=== PATIENT | female | born 1940 | race Caucasian/White ===

== ENCOUNTER → 2022-02-14 | Outpatient (CLI) | payer OTHER | LOC: PLD 12:12 → LAB SHORT 12:12 | DX: D22.71 Melanocytic nevi of right lower limb, including hip (principal) | CPT/HCPCS: 88305 ==

== ENCOUNTER 2023-01-27 22:31 | Observation (INO) | payer OTHER ==
[~2023-01-27] VITALS: Ht 167.6 cm; Wt 51.6 kg
[~2023-01-27 22:31] MED LIST: ALEN70 PO; ATEN50 PO; ATOR40TA PO; CLOP75 PO; Isosorbide Mono30 MG PO; LEVSOD75 PO; LISI20 PO; LOW DOSE ASPIRI81 M1 PO; METO25ER PO; NITR.4SL SL; PANT20 PO; POTA10T PO; Prinivil10 MG PO; UBID10 PO
[2023-01-27 23:07] LABS: BASOPHILS ABSOLUTE AUTO 0.04 K/mm3 (0.00-0.23); BASOPHILS PERCENT AUTO 1 % (0-2); EOSINOPHILS PERCENT AUTO 2 % (0-6); Hematocrit 44.6 % (33.0-51.0); Hemoglobin 15.2 g/dL (11.5-16.0); IMMATURE GRAN ABSOLUTE AUTO 0.02 K/mm3 (0.00-0.10); IMMATURE GRAN PERCENT AUTO 0 % (0-1); LYMPHOCYTES ABSOLUTE AUTO 2.25 K/mm3 (0.84-5.20); LYMPHOCYTES PERCENT AUTO 34 % (21-46); MONOCYTES ABSOLUTE AUTO 0.64 K/mm3 (0.16-1.47); MONOCYTES PERCENT AUTO 10 % (4-13); Mean Corpuscular HGB 31.9 pg (26.0-34.0); Mean Corpuscular HGB Conc 34.1 g/dL (31.5-36.5); Mean Corpuscular Volume 94 fL (80-100); Mean Platelet Volume 11.3 fL (9.1-12.4); NEUTROPHILS ABSOLUTE AUTO 3.56 K/mm3 (1.96-9.15); NEUTROPHILS PERCENT AUTO 54 % (41-73); Platelet Count 178 K/mm3 (150-400); RDW Coefficient Variation 13.2 % (11.7-14.2); Red Blood Cell Count 4.77 M/mm3 (3.80-5.20); White Blood Cell Count 6.61 K/mm3 (4.00-11.30)
[2023-01-27 23:26] LABS: Albumin, Blood 4.2 g/dL (3.4-5.0); Albumin/Globulin Ratio 1.3 (0.8-1.8); Bilirubin, Total 0.5 mg/dL (0.1-1.0); Bun/Creatinine Ratio 20.6 (12.0-20.0); Calcium, Blood 9.6 mg/dL (8.5-10.1); Creatinine, Blood 0.68 mg/dL (0.40-1.00); Globulin, Blood 3.3 g/dL (2.2-4.0); Potassium, Blood 3.6 mmol/L (3.5-5.5); Total Protein, Blood 7.5 g/dL (6.4-8.2)
[2023-01-28 04:05] VITALS: BP 217/104
--- NOTE | 2023-01-28 04:53 | NUR ---
ADMIT NOTE 82 YR OLD FEMALE ADMITTED TO FLOOR FROM THE ED WITH DX OF HYPERTENSIVE CRISIS. ALERT AND OREINTED X 4. COOPERATIVE. BP 217/104. AT BEDSIDE TO ASSESS PT. HYDRALAZINE 10 MG IV ADMINISTERED. PT REPORTED HAD CHEST PAIN IN THE ED. MD ASSESSED PT. THEN PT UP TO BATHROOM WITH OBSERVATION. VOIDED AND THEN BACK TO BED. HOB ELEVATED. ORIENTED TO USE OF CALL LIGHT AND BED CONTROL. CALL LIGHT IN REACH. WILL CONTINUE TO MONITOR
[2023-01-28 05:01] VITALS: BP 136/62
--- NOTE | 2023-01-28 05:08 | NUR ---
VOICED SOME ANXIETY. BREATHING TECHNIQUES DISCUSSED, REASSURANCE GIVEN. BP MED EFFECTIVE: 136/62. WILL CONT TO MONITOR
[2023-01-28 07:30] VITALS: BP 149/73
[2023-01-28 08:49] LABS: BASOPHILS ABSOLUTE AUTO 0.04 K/mm3 (0.00-0.23); BASOPHILS PERCENT AUTO 0 % (0-2); EOSINOPHILS ABSOLUTE AUTO 0.01 K/mm3 (0.00-0.68); EOSINOPHILS PERCENT AUTO 0 % (0-6); Hematocrit 46.3 % (33.0-51.0); Hemoglobin 16.1 g/dL (11.5-16.0); IMMATURE GRAN ABSOLUTE AUTO 0.04 K/mm3 (0.00-0.10); IMMATURE GRAN PERCENT AUTO 0 % (0-1); LYMPHOCYTES ABSOLUTE AUTO 1.19 K/mm3 (0.84-5.20); LYMPHOCYTES PERCENT AUTO 11 % (21-46); MONOCYTES ABSOLUTE AUTO 0.53 K/mm3 (0.16-1.47); MONOCYTES PERCENT AUTO 5 % (4-13); Mean Corpuscular HGB 32.2 pg (26.0-34.0); Mean Corpuscular HGB Conc 34.8 g/dL (31.5-36.5); Mean Corpuscular Volume 93 fL (80-100); Mean Platelet Volume 11.3 fL (9.1-12.4); NEUTROPHILS PERCENT AUTO 83 % (41-73); Platelet Count 207 K/mm3 (150-400); RDW Coefficient Variation 13.3 % (11.7-14.2); RDW Standard Deviation 45.4 fL (35.1-46.3); White Blood Cell Count 10.71 K/mm3 (4.00-11.30)
[2023-01-28 09:19] LABS: Albumin, Blood 4.3 g/dL (3.4-5.0); Albumin/Globulin Ratio 1.3 (0.8-1.8); Bilirubin, Total 0.8 mg/dL (0.1-1.0); Bun/Creatinine Ratio 20.4 (12.0-20.0); Calcium, Blood 9.1 mg/dL (8.5-10.1); Creatinine, Blood 0.59 mg/dL (0.40-1.00); Globulin, Blood 3.4 g/dL (2.2-4.0); Potassium, Blood 3.5 mmol/L (3.5-5.5); Total Protein, Blood 7.7 g/dL (6.4-8.2)
[2023-01-28 15:45] VITALS: BP 144/75
--- NOTE | 2023-01-28 17:11 | NUR ---
SHIFT SUMMARY PT AOX4, INDEPENDENT TO THE BATHROOM. SLEPT MOST OF THE SHIFT, STATED SHE DID NOT GET ANY SLEEP LAST NIGHT. NO COMPLAINTS OF CP OR PRESSURE THIS SHIFT. PT CALLS WELL AND MAKES HER NEEDS KNOWN. POTENTIAL DISCHARGE TOMORROW. CALL LIGHT WITHIN REACH, BED IN THE LOWEST POSITION. WILL REPORT TO ONCOMING NURSE.
[2023-01-28 19:42] VITALS: BP 133/71
[2023-01-29 04:07] VITALS: BP 166/86
--- NOTE | 2023-01-29 04:53 | NUR ---
SHIFT SUMMARY PATIENT IS ALERT AND ORIENTED. PATIENT HAS HAD NO ACUTE EVENTS THIS SHIFT. VITAL SIGNS REVIEWED. PATIENT HAS HAD NO COMPLAINTS OF PAIN, NAUSEA, SOB OR VOMITTING THIS SHIFT. PATIENT HAS SLEPT WELL THIS SHIFT. BED IN LOCKED AND LOWEST POSITION. CALL LIGHT IN PLACE. WILL MONITOR UNTIL SHIFT CHANGE.
[2023-01-29 04:54] LABS: BASOPHILS ABSOLUTE AUTO 0.03 K/mm3 (0.00-0.23); BASOPHILS PERCENT AUTO 1 % (0-2); EOSINOPHILS ABSOLUTE AUTO 0.05 K/mm3 (0.00-0.68); EOSINOPHILS PERCENT AUTO 1 % (0-6); Hematocrit 40.9 % (33.0-51.0); IMMATURE GRAN ABSOLUTE AUTO 0.01 K/mm3 (0.00-0.10); IMMATURE GRAN PERCENT AUTO 0 % (0-1); LYMPHOCYTES ABSOLUTE AUTO 1.75 K/mm3 (0.84-5.20); LYMPHOCYTES PERCENT AUTO 30 % (21-46); MONOCYTES ABSOLUTE AUTO 0.66 K/mm3 (0.16-1.47); MONOCYTES PERCENT AUTO 11 % (4-13); Mean Corpuscular HGB Conc 34.2 g/dL (31.5-36.5); Mean Corpuscular Volume 93 fL (80-100); Mean Platelet Volume 11.1 fL (9.1-12.4); NEUTROPHILS ABSOLUTE AUTO 3.42 K/mm3 (1.96-9.15); NEUTROPHILS PERCENT AUTO 58 % (41-73); Platelet Count 160 K/mm3 (150-400); RDW Coefficient Variation 13.5 % (11.7-14.2); RDW Standard Deviation 46.7 fL (35.1-46.3); Red Blood Cell Count 4.38 M/mm3 (3.80-5.20); White Blood Cell Count 5.92 K/mm3 (4.00-11.30)
[2023-01-29 05:30] LABS: Albumin, Blood 3.3 g/dL (3.4-5.0); Albumin/Globulin Ratio 1.2 (0.8-1.8); Bilirubin, Total 0.6 mg/dL (0.1-1.0); Bun/Creatinine Ratio 25.8 (12.0-20.0); Calcium, Blood 8.4 mg/dL (8.5-10.1); Creatinine, Blood 0.66 mg/dL (0.40-1.00); Globulin, Blood 2.8 g/dL (2.2-4.0); Potassium, Blood 4.1 mmol/L (3.5-5.5); Total Protein, Blood 6.1 g/dL (6.4-8.2)
[2023-01-29 07:17] VITALS: BP 167/78
[2023-01-29] MEDS ORDERED: LISI20 PO (13:07)
--- NOTE | 2023-01-29 15:27 | NUR ---
DISCHARGE SUMMARY ALERT, ORIENTED, PLEASANT, COOPERATIVE. INDEPENDENT IN ROOM. ROOM AIR, SR-ST ON TELE. TOLERATING CARDIAC DIET AND LIQUIDS. VOIDING WELL. BP STABLE AND SLIGHTLY ELEVATED. PATIENT DENIES CHEST PAIN, SOB, DIZZINESS, PALPITATIONS, OR WEAKNESS. BP MEDS ADJUSTED BY DR LENZ, DISCHARGE ORDER GIVEN. DISCHARGE EDUCATION GIVEN ON MED DOSE CHANGES AND RX'S SENT TO [facility]. ALSO EDUCATION ON SIGNS/SYMPTOMS TO CALL OR RETURN. AND FOLLOW UP APPT WITH TETO ROTH AT [facility]. IV DC'D WNL. PATIENT LEFT UNIT AT 1520 VIA WHEELCHAIR WITH DAUGHTER FOR HOME.
== END 2023-01-29 15:11 | disposition home or self-care (01) ==
LOC: ER 22:31 → MEDS 22:32
PROVIDERS: Emergency Medicine; Internal Medicine; ADMIT Internal Medicine
DX: I16.1 Hypertensive emergency (principal); I10 Essential (primary) hypertension; R79.89 Other specified abnormal findings of blood chemistry; I25.10 Atherosclerotic heart disease of native coronary artery without angina pectoris; E03.9 Hypothyroidism, unspecified; Z88.2 Allergy status to sulfonamides
CPT/HCPCS: 36415; 71045; 80053; 84484; 85025; 93005; 93010; 96372; 96374; 96375; 99285-25; A9270; C9113; G0378; J1650

== ENCOUNTER → 2023-03-18 | Outpatient (CLI) | payer OTHER | LOC: LAB 10:10 → LAB SHORT 10:10 | DX: N39.0 Urinary tract infection, site not specified (principal) | CPT/HCPCS: 87077; 87086; 87186 ==

== ENCOUNTER → 2023-04-18 | Outpatient (CLI) | payer OTHER ==
[2023-04-18 13:53] LABS: Source, Urine Clean Catch
[2023-04-18 15:00] LABS: Blood, Urine Neg (Neg); Color, Urine Amber (P-Yellow); Glucose Qualitative, Urine Neg (Neg); Ketones, Urine Neg (Neg); Leukocyte Esterase, Urine 2+ (Neg); Nitrite, Urine Neg (Neg); Protein, Urine 2+ (Neg); Urobilinogen, Urine 1+ (Normal)
[2023-04-18 15:13] LABS: Appearance, Urine Hazy (Clear); Bilirubin, Urine 1+ (Neg)
[2023-04-18 15:14] LABS: Amorphous Light (0-Heavy); Bacteria Mod /hpf; Mucus Light (0-Heavy); Red Blood Cells, Urine 0-2 /hpf (0-2); Squamous Epithelial Cells Rare /hpf (Few)
== END ==
LOC: LAB SHORT 13:43 → LAB 13:43
PROVIDERS: Obstetrics & Gynecology
DX: N30.90 Cystitis, unspecified without hematuria (principal)
CPT/HCPCS: 81001; 87086

== ENCOUNTER → 2023-05-20 | Outpatient (CLI) | payer OTHER ==
[2023-05-20 13:52] LABS: Source, Urine Clean Catch
[2023-05-20 15:49] LABS: Appearance, Urine Clear (Clear); Bilirubin, Urine Neg (Neg); Blood, Urine Neg (Neg); Color, Urine Yellow (P-Yellow); Glucose Qualitative, Urine Neg (Neg); Ketones, Urine Neg (Neg); Leukocyte Esterase, Urine Neg (Neg); Nitrite, Urine Neg (Neg); Protein, Urine Neg (Neg); Urobilinogen, Urine NORM (Normal)
== END | disposition home or self-care (01) ==
LOC: LAB 13:51 → LAB SHORT 13:51
PROVIDERS: Obstetrics & Gynecology
DX: N32.89 Other specified disorders of bladder (principal)
CPT/HCPCS: 81003

== ENCOUNTER → 2023-07-09 | Outpatient (CLI) | payer OTHER ==
[2023-07-13 07:49] LABS: CORTISOL,U FREE - RATIO TO CRT 17.47 ug/g CRT; CORTISOL,URINE FREE - PER 24H 7.4 ug/d (<=45.0); CORTISOL,URN FREE - PER VOLUME 2.97 ug/L; CREATININE,URINE - PER 24H 425 mg/d (400-1300); CREATININE,URINE - PER VOLUME 17 mg/dL; HOURS COLLECTED 24 hr; TOTAL VOLUME 2500 mL
== END | disposition home or self-care (01) ==
LOC: LAB SHORT 05:00 → LAB 05:00
PROVIDERS: Physician Assistant
DX: R19.09 Other intra-abdominal and pelvic swelling, mass and lump (principal)
CPT/HCPCS: 81050; 82530

== ENCOUNTER → 2023-07-30 | Outpatient (CLI) | payer OTHER ==
[2023-08-02 08:11] LABS: CREATININE,URINE - PER 24H 646 mg/d (400-1300); CREATININE,URINE - PER VOLUME 19 mg/dL; HOURS COLLECTED 24 hr; METANEPHRINE,UR - RATIO TO CRT 116 ug/g CRT (0-300); METANEPHRINE,URINE - PER 24H 75 ug/d (36-229); METANEPHRINE,URN - PER VOLUME 22 ug/L; NORMETANEPHRINE,U - PER VOLUME 113 ug/L; NORMETANEPHRINE,URN - PER 24H 384 ug/d (95-650); NORMETANEPHRINE,URN/CRT RATIO 595 ug/g CRT (0-400); TOTAL VOLUME 3400 mL
[2023-08-02 10:16] LABS: CREATININE,URINE - PER 24H 646 mg/d (400-1300); CREATININE,URINE - PER VOLUME 19 mg/dL; DOPAMINE,URINE - PER 24H 150 ug/d (71-485); DOPAMINE,URINE - PER VOLUME 44 ug/L; DOPAMINE,URINE - RATIO TO CRT 232 ug/g CRT (0-250); EPINEPHRINE,URINE - PER 24H 3 ug/d (1-14); EPINEPHRINE,URINE - PER VOLUME 1 ug/L; EPINEPHRINE,URN - RATIO TO CRT 5 ug/g CRT (0-20); HOURS COLLECTED 24 hr; NOREPINEPHRINE,UR - PER VOLUME 19 ug/L; NOREPINEPHRINE,URINE - PER 24H 65 ug/d (14-120); NOREPINEPHRINE,URN/CRT RATIO 100 ug/g CRT (0-45); TOTAL VOLUME 3400 mL
== END | disposition home or self-care (01) ==
LOC: LAB SHORT 11:30 → LAB 11:30
PROVIDERS: Internal Medicine Endocrinology, Diabetes & Metabolism
DX: E27.8 Other specified disorders of adrenal gland (principal)
CPT/HCPCS: 81050; 82384; 83835

== ENCOUNTER 2023-10-02 11:00 | Inpatient (IN) | payer OTHER ==
[~2023-10-02] VITALS: Ht 162.6 cm; Wt 56.8 kg
[2023-10-02 12:02] LABS: BASOPHILS ABSOLUTE AUTO 0.05 K/mm3 (0.00-0.23); BASOPHILS PERCENT AUTO 1 % (0-2); EOSINOPHILS ABSOLUTE AUTO 0.01 K/mm3 (0.00-0.68); EOSINOPHILS PERCENT AUTO 0 % (0-6); Hematocrit 43.7 % (33.0-51.0); Hemoglobin 15.3 g/dL (11.5-16.0); IMMATURE GRAN ABSOLUTE AUTO 0.03 K/mm3 (0.00-0.10); IMMATURE GRAN PERCENT AUTO 0 % (0-1); LYMPHOCYTES PERCENT AUTO 15 % (21-46); MONOCYTES ABSOLUTE AUTO 1.02 K/mm3 (0.16-1.47); MONOCYTES PERCENT AUTO 10 % (4-13); Mean Corpuscular HGB 32.8 pg (26.0-34.0); Mean Corpuscular Volume 94 fL (80-100); Mean Platelet Volume 10.6 fL (9.1-12.4); NEUTROPHILS ABSOLUTE AUTO 7.56 K/mm3 (1.96-9.15); NEUTROPHILS PERCENT AUTO 74 % (41-73); Platelet Count 189 K/mm3 (150-400); RDW Coefficient Variation 13.4 % (11.7-14.2); RDW Standard Deviation 45.5 fL (35.1-46.3); Red Blood Cell Count 4.66 M/mm3 (3.80-5.20); White Blood Cell Count 10.17 K/mm3 (4.00-11.30)
[2023-10-02 12:23] LABS: Albumin, Blood 3.9 g/dL (3.4-5.0); Albumin/Globulin Ratio 1.3 (0.8-1.8); Bilirubin, Total 0.6 mg/dL (0.1-1.0); Bun/Creatinine Ratio 25.8 (12.0-20.0); Calcium, Blood 8.9 mg/dL (8.5-10.1); Creatinine, Blood 0.5 mg/dL (0.40-1.00); Globulin, Blood 3.1 g/dL (2.2-4.0); Potassium, Blood 4.2 mmol/L (3.5-5.5)
[2023-10-02] MEDS ORDERED: HYDCHL25 PO (14:01)
[2023-10-02] MEDS ORDERED: Acetaminophen 325 MG TABLET PO PRN (15:55)
[2023-10-02] MEDS ORDERED: Ondansetron 4 MG TAB PO PRN (15:55)
[2023-10-02] MEDS ORDERED: Propofol 10mg/ml 20 ml Vial (Procedural) IV ONE (16:49)
[2023-10-02] MEDS ORDERED: Phenylephrine HCl 100 MCG/ML-NS 10MLSYR (1MG/10ML) IV ONE (16:49)
[2023-10-02] MEDS ORDERED: Metoprolol Succinate 50 MG TABCR PO SCH (17:00)
[2023-10-02] MEDS ORDERED: Alendronate Sodium 70 MG Tablet PO SCH (17:10)
[2023-10-02] MEDS ORDERED: Nitroglycerin 0.4 MG SUBL SL PRN (17:15)
[2023-10-02 17:25] VITALS: BP 206/138
[2023-10-02] MEDS ORDERED: LISI20 PO (17:50)
[2023-10-02] MEDS ORDERED: HydroCHLOROthiazide 25 mg Tab PO SCH (18:00)
[2023-10-02] MEDS ORDERED: Lisinopril 20 MG Tab PO SCH (18:00)
[2023-10-02] MEDS ORDERED: HydrALAZINE HCl 20 MG / ML 1ML Vial IV PRN (18:05)
[2023-10-02 18:28] VITALS: BP 197/124
[2023-10-02 18:42] VITALS: BP 147/94
[2023-10-02 19:06] LABS: Anti-Xa UFH, PHA Monitoring <0.10 IU/mL; International Normalized Ratio 1.09; Prothrombin Time Results 11.6 Sec (9.7-11.5)
[2023-10-02] MEDS ORDERED: Heparin Sodium,Porcine/0.5 NS 500 ML IV SCH (19:35)
[2023-10-02 19:53] VITALS: BP 139/84
[2023-10-02] MEDS ORDERED: Magnesium Oxide 400 MG Tab PO SCH (21:55)
[2023-10-02] MEDS ORDERED: Melatonin 5 MG Tablet PO PRN (21:55)
[2023-10-02] MEDS ORDERED: BIOFREEZE TOP PRN (22:00)
[2023-10-02 23:35] VITALS: BP 100/60
[2023-10-02 23:55] VITALS: BP 149/93
[2023-10-03] VITALS (16 sets, daily range): BP systolic 88–140; BP diastolic 58–98
--- NOTE | 2023-10-03 00:35 | NUR ---
10/02/23 2340 Pt found sitting on floor in bathroom and slow to respond. Assist pt to supine position on bathroom floor. Physical assesment and vital signs obtained. Pt voice weak but able to speak. Pt reports unsure about what happened, but reports she is "pretty sure I did not hit my head." Heparin gtt stopped until MD notified. Pt had been up to BR mutiple times with SBA to and from. Pt educated at start of shift regarding fall precautions, uses call light appropriately. Helped to BR via staff member and notified to call when finished as per prior times this shift. Upon checking, staff member found pt sitting on bathroom floor near sink, resting head on sink. Placed lift sheet under pt and used multiple staff to lift pt to bed. [address] Jose notified, orders to continue Heparin gtt. 2350 Assessment repeated, neuro assessment Q1hr. Frequent vital signs.
[2023-10-03 02:17] LABS: BASOPHILS ABSOLUTE AUTO 0.04 K/mm3 (0.00-0.23); BASOPHILS PERCENT AUTO 0 % (0-2); EOSINOPHILS ABSOLUTE AUTO 0.01 K/mm3 (0.00-0.68); EOSINOPHILS PERCENT AUTO 0 % (0-6); Hematocrit 41.8 % (33.0-51.0); Hemoglobin 14.4 g/dL (11.5-16.0); IMMATURE GRAN ABSOLUTE AUTO 0.03 K/mm3 (0.00-0.10); IMMATURE GRAN PERCENT AUTO 0 % (0-1); LYMPHOCYTES ABSOLUTE AUTO 1.17 K/mm3 (0.84-5.20); LYMPHOCYTES PERCENT AUTO 12 % (21-46); MONOCYTES ABSOLUTE AUTO 0.86 K/mm3 (0.16-1.47); MONOCYTES PERCENT AUTO 9 % (4-13); Mean Corpuscular HGB 31.9 pg (26.0-34.0); Mean Corpuscular HGB Conc 34.4 g/dL (31.5-36.5); Mean Corpuscular Volume 93 fL (80-100); Mean Platelet Volume 10.6 fL (9.1-12.4); NEUTROPHILS ABSOLUTE AUTO 7.62 K/mm3 (1.96-9.15); NEUTROPHILS PERCENT AUTO 78 % (41-73); Platelet Count 180 K/mm3 (150-400); RDW Coefficient Variation 13.2 % (11.7-14.2); RDW Standard Deviation 45.1 fL (35.1-46.3); Red Blood Cell Count 4.51 M/mm3 (3.80-5.20); White Blood Cell Count 9.73 K/mm3 (4.00-11.30)
[2023-10-03] MEDS ORDERED: Dose Adjust by Pharmacy XX STA ×3 (02:22→14:33)
[2023-10-03 02:33] LABS: Albumin, Blood 3.4 g/dL (3.4-5.0); Albumin/Globulin Ratio 1.2 (0.8-1.8); Bilirubin, Total 0.7 mg/dL (0.1-1.0); Bun/Creatinine Ratio 30.9 (12.0-20.0); Calcium, Blood 7.8 mg/dL (8.5-10.1); Creatinine, Blood 0.42 mg/dL (0.40-1.00); Globulin, Blood 2.8 g/dL (2.2-4.0); Magnesium, Blood 2.1 mg/dL (1.6-2.4); Phosphorus, Blood 2.7 mg/dL (2.5-4.9); Potassium, Blood 3.3 mmol/L (3.5-5.5); Total Protein, Blood 6.2 g/dL (6.4-8.2)
[2023-10-03] MEDS ORDERED: Levothyroxine Sodium 0.075 MG Tab PO SCH (06:00)
[2023-10-03] MEDS ORDERED: Pantoprazole Sodium 20 MG Tab PO SCH (06:00)
[2023-10-03] MEDS ORDERED: Metoprolol Succinate 25 MG TABCR PO SCH (09:00)
[2023-10-03] MEDS ORDERED: Clopidogrel Bisulfate 75 MG Tab PO SCH (09:00)
[2023-10-03] MEDS ORDERED: Atorvastatin 40 MG Tab PO SCH (09:00)
[2023-10-03] MEDS ORDERED: Potassium Chloride 10 Meq Tablet SA PO SCH (09:00)
[2023-10-03] MEDS ORDERED: Aspirin 81 MG TabEC PO SCH (09:00)
[2023-10-03] MEDS ORDERED: Isosorbide Mononitrate 60 MG TABCR PO SCH (09:00)
[2023-10-03] MEDS ORDERED: Enoxaparin 40 MG/0.4 ML SYR SC SCH (09:00)
[2023-10-03] MEDS ORDERED: Metoprolol Succinate 50 MG TABCR PO SCH (09:00)
[2023-10-03] MEDS ORDERED: Misc. Capsule PO SCH (09:00)
--- NOTE | 2023-10-03 09:25 | NUR ---
AM SHIFT PT ALERT, ORIENTED X4; CALM AND COOPERATIVE [facility]. PT RESTING IN BED, UP WITH SBA. PT DENIES PAIN, CHEST PAIN/PRESSURE, SOB, NAUSEA, AND NUMB/TINGLING. PT REPORTS BASELINE "LIGHTHEADEDNESS" ALL THE TIME. DISCUSSED BP MEDICATIONS AND SOFT BP WITH DR HESTER, NEW ORDER FOR METOPROLOL AND HOLD MEDICATIONS THIS AM. SPO2 >90% ON RA, BREATHING EVEN AND UNLABORED. ABD SOFT, NONTENDER, +BT T/O. TELE AFIB 110'S, BP STABLE. NO EDEMA NOTED. OTHER VSS. NO OTHER ACUTE CHANGES NOTED. WILL CONTINUE TO MONITOR.
--- NOTE | 2023-10-03 16:11 | NUR ---
SHIFT SUMMARY NO ACUTE CHANGES NOTED. BP TRENDING UP. OTHER VSS. WILL CONTINUE TO MONITOR.
[2023-10-03] MEDS ORDERED: Potassium Chloride 10 Meq Tablet SA PO ONE (20:30)
[2023-10-04] VITALS (8 sets, daily range): BP systolic 94–168; BP diastolic 55–116
[2023-10-04 05:14] LABS: Hematocrit 41.9 % (33.0-51.0); Hemoglobin 14.9 g/dL (11.5-16.0); Mean Platelet Volume 10.6 fL (9.1-12.4); Platelet Count 181 K/mm3 (150-400)
[2023-10-04] MEDS ORDERED: Clarify Drug Order XX ONE (05:45)
--- NOTE | 2023-10-04 05:47 | NUR ---
1915 Assumed care of pt, bedside report completed. Shift planof care reviewed with pt, all questions answered. Pt with uneventful shift, was able to sleep well per her report. Remains in Atrial Fib with rate between 80-110, BP remains stable. Taking PO well, and up to BR/BSC with SBA due to fall yesterday. Pt calling appropriately and neuro status has remained stable. Please see full assessment for additional details. No further complaints or concerns at this time, will continue to monitor.
[2023-10-04] MEDS ORDERED: dilTIAZem HCL 30 MG TAB PO SCH ×2 (09:00→14:00)
[2023-10-04 09:09] LABS: BASOPHILS ABSOLUTE AUTO 0.03 K/mm3 (0.00-0.23); BASOPHILS PERCENT AUTO 0 % (0-2); EOSINOPHILS ABSOLUTE AUTO 0.05 K/mm3 (0.00-0.68); EOSINOPHILS PERCENT AUTO 1 % (0-6); Hematocrit 41.5 % (33.0-51.0); Hemoglobin 14.7 g/dL (11.5-16.0); IMMATURE GRAN ABSOLUTE AUTO 0.03 K/mm3 (0.00-0.10); IMMATURE GRAN PERCENT AUTO 0 % (0-1); LYMPHOCYTES ABSOLUTE AUTO 2.16 K/mm3 (0.84-5.20); LYMPHOCYTES PERCENT AUTO 25 % (21-46); MONOCYTES ABSOLUTE AUTO 0.83 K/mm3 (0.16-1.47); MONOCYTES PERCENT AUTO 10 % (4-13); Mean Corpuscular HGB 32.5 pg (26.0-34.0); Mean Corpuscular HGB Conc 35.4 g/dL (31.5-36.5); Mean Corpuscular Volume 92 fL (80-100); Mean Platelet Volume 11.3 fL (9.1-12.4); NEUTROPHILS ABSOLUTE AUTO 5.53 K/mm3 (1.96-9.15); NEUTROPHILS PERCENT AUTO 64 % (41-73); Platelet Count 186 K/mm3 (150-400); RDW Coefficient Variation 13.2 % (11.7-14.2); RDW Standard Deviation 44.9 fL (35.1-46.3); Red Blood Cell Count 4.52 M/mm3 (3.80-5.20); White Blood Cell Count 8.63 K/mm3 (4.00-11.30)
[2023-10-04 09:23] LABS: Albumin, Blood 3.4 g/dL (3.4-5.0); Albumin/Globulin Ratio 1.2 (0.8-1.8); Bun/Creatinine Ratio 22.3 (12.0-20.0); Calcium, Blood 7.8 mg/dL (8.5-10.1); Creatinine, Blood 0.49 mg/dL (0.40-1.00); Globulin, Blood 2.8 g/dL (2.2-4.0); Total Protein, Blood 6.2 g/dL (6.4-8.2)
--- NOTE | 2023-10-04 10:41 | NUR ---
Pt. is awake in bed and welcomes my visit. Pt. is pleasant and displays evidence of awarenss and engagement. Facilitate a life review and in the process establish rapport. Considered matters of wilber anf belief as well as the implications of her condition and future procedures. Listen with empathy and a calming presence. Pt. verbalized the expectation that she would eb discharged tomorrow. Pt. displays evidence of being encouraged with some of her anxieties lessened as a result of our visit. Prayed with Pt. Pt. verbalized gratitude for the spiritual care visit.
--- NOTE | 2023-10-04 17:45 | NUR ---
SHIFT SUMMARY PT BP DROPPED AFTER AM MEDCIATIONS, DR HERNÁNDEZ NOTIFIED. DR MCCLENDON TO ROOM THIS AFTERNOON. PLANS TO CONITNUE MEDICATIONS AT THIS TIME. NEED FOR ELA AND CARDIOVERSION, PLANS FOR ON SATURDAY; NPO SATURDAY NIGHT. BP TRENDING BACK UP. TELE AFIB 110-130'S. NO OTHER ACUTE CHANGES NOTED. OTHER VSS. WILL CONTINUE TO MONITOR.
[2023-10-05 03:57] VITALS: BP 110/68
[2023-10-05 04:15] LABS: BASOPHILS ABSOLUTE AUTO 0.05 K/mm3 (0.00-0.23); BASOPHILS PERCENT AUTO 1 % (0-2); EOSINOPHILS PERCENT AUTO 1 % (0-6); Hematocrit 38.9 % (33.0-51.0); Hemoglobin 13.7 g/dL (11.5-16.0); IMMATURE GRAN ABSOLUTE AUTO 0.03 K/mm3 (0.00-0.10); IMMATURE GRAN PERCENT AUTO 0 % (0-1); LYMPHOCYTES ABSOLUTE AUTO 2.06 K/mm3 (0.84-5.20); LYMPHOCYTES PERCENT AUTO 23 % (21-46); MONOCYTES ABSOLUTE AUTO 0.65 K/mm3 (0.16-1.47); MONOCYTES PERCENT AUTO 7 % (4-13); Mean Corpuscular HGB 32.4 pg (26.0-34.0); Mean Corpuscular HGB Conc 35.2 g/dL (31.5-36.5); Mean Corpuscular Volume 92 fL (80-100); Mean Platelet Volume 10.5 fL (9.1-12.4); NEUTROPHILS ABSOLUTE AUTO 6.09 K/mm3 (1.96-9.15); NEUTROPHILS PERCENT AUTO 68 % (41-73); Platelet Count 181 K/mm3 (150-400); RDW Coefficient Variation 13.2 % (11.7-14.2); RDW Standard Deviation 45.1 fL (35.1-46.3); Red Blood Cell Count 4.23 M/mm3 (3.80-5.20); White Blood Cell Count 8.98 K/mm3 (4.00-11.30)
[2023-10-05 04:37] LABS: Albumin, Blood 3.1 g/dL (3.4-5.0); Albumin/Globulin Ratio 1.1 (0.8-1.8); Bilirubin, Total 0.5 mg/dL (0.1-1.0); Bun/Creatinine Ratio 23.1 (12.0-20.0); Calcium, Blood 8.1 mg/dL (8.5-10.1); Creatinine, Blood 0.48 mg/dL (0.40-1.00); Globulin, Blood 2.8 g/dL (2.2-4.0); Potassium, Blood 3.9 mmol/L (3.5-5.5); Total Protein, Blood 5.9 g/dL (6.4-8.2)
[2023-10-05] MEDS ORDERED: Clarify Drug Order XX ONE (04:40)
--- NOTE | 2023-10-05 05:16 | NUR ---
1915 Assumed care of pt, bedside report completed. Shift plan of care reviewed with pt and all questions answered. Pt slept well this shift, BP stable and HR well controlled. Pt does endorse disappointment regarding need to reschedule adrenal gland surgery in order to address current Atrial Fibrillation. Pt expresses understanding that without addressing this, she would not be cleared for surgery. Theraupetic listening and encouraged pt to use coping tools she has at her disposal. Pow[employer] Worker Tnt from her local [place] in to visit. Pt more calm and centered the rest of the shift. Heparin gtt continues at 15u/kg/hr, next check 6/30 AM. Please see full assessment for additional details. No further complaints or concerns at this time, will continue to monitor.
[2023-10-05 07:47] VITALS: BP 127/84
--- NOTE | 2023-10-05 07:55 | NUR ---
am note this rn assumed care at 0700. vital signs stable. tele afib 100s-110s. spo2 >97% on room air. patient is alert and oriented x4. neuro is intact. perrla. patient is able to make needs known and uses call light appropriately. patient is independent, but has staff standby due to history of syncopal episode on 10/02 noc. patient denies chest pain/pressure, pain, or shortness of breath. see shift assessment for further detials. geparin drip at 15u/kg/hr with dose weight at 50kg. see emar.
[2023-10-05] MEDS ORDERED: HyDROXyzine HCl 10 MG Tab PO PRN (11:30)
[2023-10-05 12:31] VITALS: BP 114/91
[2023-10-05 15:05] VITALS: BP 111/78
--- NOTE | 2023-10-05 18:33 | NUR ---
shift summary patient neuro remains up to date. vital signs stable. tele afib 100-120s. heart rate increased with activity. heparin drip remains running at same rate, 15u/kg/hr. plan for galo/cardiocversion on saturday (10/07/23). npo saturday night at midnight. no acute changes this shift. plan remains up to date.
[2023-10-05 20:04] VITALS: BP 130/94
[2023-10-05] MEDS ORDERED: Calcium Carbonate 500 MG Tab Chew PO PRN (20:50)
[2023-10-05 23:38] VITALS: BP 137/83
[2023-10-06 03:30] LABS: BASOPHILS ABSOLUTE AUTO 0.04 K/mm3 (0.00-0.23); BASOPHILS PERCENT AUTO 1 % (0-2); EOSINOPHILS ABSOLUTE AUTO 0.11 K/mm3 (0.00-0.68); EOSINOPHILS PERCENT AUTO 2 % (0-6); Hematocrit 39.6 % (33.0-51.0); IMMATURE GRAN ABSOLUTE AUTO 0.03 K/mm3 (0.00-0.10); IMMATURE GRAN PERCENT AUTO 0 % (0-1); LYMPHOCYTES ABSOLUTE AUTO 2.01 K/mm3 (0.84-5.20); LYMPHOCYTES PERCENT AUTO 29 % (21-46); MONOCYTES ABSOLUTE AUTO 0.76 K/mm3 (0.16-1.47); MONOCYTES PERCENT AUTO 11 % (4-13); Mean Corpuscular HGB 32.9 pg (26.0-34.0); Mean Corpuscular HGB Conc 35.4 g/dL (31.5-36.5); Mean Corpuscular Volume 93 fL (80-100); Mean Platelet Volume 10.5 fL (9.1-12.4); NEUTROPHILS ABSOLUTE AUTO 4.04 K/mm3 (1.96-9.15); NEUTROPHILS PERCENT AUTO 58 % (41-73); Platelet Count 182 K/mm3 (150-400); RDW Coefficient Variation 13.4 % (11.7-14.2); RDW Standard Deviation 45.7 fL (35.1-46.3); Red Blood Cell Count 4.26 M/mm3 (3.80-5.20); White Blood Cell Count 6.99 K/mm3 (4.00-11.30)
[2023-10-06 03:50] LABS: Albumin, Blood 3.2 g/dL (3.4-5.0); Albumin/Globulin Ratio 1.1 (0.8-1.8); Bilirubin, Total 0.7 mg/dL (0.1-1.0); Bun/Creatinine Ratio 19.1 (12.0-20.0); Calcium, Blood 8.4 mg/dL (8.5-10.1); Creatinine, Blood 0.58 mg/dL (0.40-1.00); Globulin, Blood 2.8 g/dL (2.2-4.0); Potassium, Blood 4.7 mmol/L (3.5-5.5)
[2023-10-06] MEDS ORDERED: Clarify Drug Order XX ONE (03:55)
[2023-10-06 04:00] VITALS: BP 138/77
--- NOTE | 2023-10-06 05:14 | NUR ---
SHIFT SUMMARY ASSUMED CARE OF PT AT 1900. PT IS A/OX4 HEART SOUNDS REGULAR. PT PULSE RANGED FROM 80S-120S WITH ACTIVITY. HEPRIN INFUSING T/O THE NOC. PT WAS A SBA TO BATHROOM FOR CORD SAFETY. PT C/O NOT SLEEPING WELL DUE TO NOT BEING HOME BUT STATES SHES DOING WELL.
[2023-10-06 07:37] VITALS: BP 144/92
[2023-10-06 11:20] VITALS: BP 116/85
[2023-10-06 15:17] VITALS: BP 106/69
--- NOTE | 2023-10-06 16:25 | NUR ---
SHIFT SUMMARY THE PT IS A&OX4, CALLS APPROPRAITELY, AND CAN MAKE HER NEEDS KNOWN. SHE IS A 1P SBA FOR TRANSFER. LATE MORNING THE PT HAD AN EPISODE OF FEELING LIGHT HEADED, BP STABLE. IT RESOLVED AFTER ABOUT AN HOUR OF REST. ON TELE SHE HAS BEEN AFIB 90'S-130'S, BP STABLE. SHE REMAINS ON RA W/O ANY SOB. THE PT WAS SEEN BY DR. MCCLENDON TODAY AND SHE WILL BE NPO AT 0000 FOR ELA/CARDIOVERSION 10/06. SHE REMAINS ON A HEP GTT BEING TITRAITED BY PHARMACY. SEE NOTES FOR ANY UPDATES.
[2023-10-06 19:19] VITALS: BP 120/87
--- NOTE | 2023-10-06 19:40 | NUR ---
ASSUMPTION OF CARE: PATIENT IS ALERT AND ORIENTED X 4, LYNETTE TO MAKE NEEDS KNOWN, USES CALL LIGHT APPROPRIATELY, STEADY ON HER FEET AT THIS TIME, STILL A STAND BY FOR SAFETY. PATIENT VSS. HEPARIN INFUSING. NPO 0000 FOR ELA WITH CARDIOVERSION. PATIENT EDUCATED ABOUT CURRENT ILLNESS. NO ACUTE CONCERN, DENIES CHEST PAIN PRESSURE OR SOB. >94% ON RA. AFEBRILE.
[2023-10-06 23:12] VITALS: BP 130/87
[2023-10-07 03:26] VITALS: BP 122/78
[2023-10-07 03:59] LABS: BASOPHILS ABSOLUTE AUTO 0.06 K/mm3 (0.00-0.23); BASOPHILS PERCENT AUTO 1 % (0-2); EOSINOPHILS PERCENT AUTO 2 % (0-6); Hematocrit 38.7 % (33.0-51.0); Hemoglobin 13.5 g/dL (11.5-16.0); IMMATURE GRAN ABSOLUTE AUTO 0.04 K/mm3 (0.00-0.10); IMMATURE GRAN PERCENT AUTO 1 % (0-1); LYMPHOCYTES ABSOLUTE AUTO 2.09 K/mm3 (0.84-5.20); LYMPHOCYTES PERCENT AUTO 31 % (21-46); MONOCYTES ABSOLUTE AUTO 0.69 K/mm3 (0.16-1.47); MONOCYTES PERCENT AUTO 10 % (4-13); Mean Corpuscular HGB 32.3 pg (26.0-34.0); Mean Corpuscular HGB Conc 34.9 g/dL (31.5-36.5); Mean Corpuscular Volume 93 fL (80-100); Mean Platelet Volume 10.7 fL (9.1-12.4); NEUTROPHILS ABSOLUTE AUTO 3.86 K/mm3 (1.96-9.15); NEUTROPHILS PERCENT AUTO 56 % (41-73); Platelet Count 191 K/mm3 (150-400); RDW Coefficient Variation 13.5 % (11.7-14.2); Red Blood Cell Count 4.18 M/mm3 (3.80-5.20); White Blood Cell Count 6.84 K/mm3 (4.00-11.30)
[2023-10-07] MEDS ORDERED: Clarify Drug Order XX ONE (04:15)
[2023-10-07 04:23] LABS: Albumin, Blood 3.1 g/dL (3.4-5.0); Albumin/Globulin Ratio 1.1 (0.8-1.8); Bilirubin, Total 0.6 mg/dL (0.1-1.0); Bun/Creatinine Ratio 23.2 (12.0-20.0); Calcium, Blood 8.2 mg/dL (8.5-10.1); Creatinine, Blood 0.52 mg/dL (0.40-1.00); Globulin, Blood 2.8 g/dL (2.2-4.0); Potassium, Blood 4.4 mmol/L (3.5-5.5); Total Protein, Blood 5.9 g/dL (6.4-8.2)
--- NOTE | 2023-10-07 06:31 | NUR ---
EOS: ONLY CHANGES FROM ASSUMPTION IS PATIENT HAS BEEN NPO SINCE MIDNIGHT, HEPARIN RATE STILL THE SAME. STILL DENYING CHEST PAIN PRESSURE OR SOB. RATE IMPROVED THROUGH THE NIGHT 70-100'S UP TO 120 WITH EXERTION, VSS AFEBRILE. NO ACUTE CONCERNS FROM THIS RN.
[2023-10-07 07:54] VITALS: BP 152/96
[2023-10-07 11:24] VITALS: BP 133/95
[2023-10-07 14:43] VITALS: BP 100/71
[2023-10-07 15:54] VITALS: BP 114/83
--- NOTE | 2023-10-07 17:41 | NUR ---
SHIFT SUMMARY: PT HAS BEEN A&Ox4, ANSWERS QUESTIONS APPROPRIATELY, COOPERATIVE W/CARE. ELA & CARDIOVERSION WAS ORIGINALLY PLANNED FOR TODAY BUT HAS BEEN RESCHEDULED FOR TOMORROW AM, PT HAS BEEN UPDATED AND IS AGREEABLE TO PLAN. PT HAS DENIED SOB, O2 SATS >93% ON RA. PT HAS DENIED CP, AFIB ON MONITOR W/RATE RANGING 80s-120s DEPENDING ON ACTIVITY LEVEL. HEPARIN GTT INFUSING PER ORDERS. PT HAS DENIED ABD PAIN, N/V, WILL BE NPO AT MIDNIGHT. PT CALLS APPROPRIATELY TO NOTIFY STAFF OF BATHROOM NEEDS SO SOMEONE CAN BE WITH HER WHILE SHE AMBULATES, REPORTS MINIMAL LIGHTHEADEDNESS WHILE UP. AT THIS TIME, PT IS SITTING AT BEDSIDE W/MEAL TRAY AND CALL LIGHT IN REACH. WILL CONTINUE TO MONITOR AND TREAT ACCORDINGLY UNTIL CHANGE OF SHIFT.
[2023-10-07 19:56] VITALS: BP 112/79
[2023-10-08] VITALS (24 sets, daily range): BP systolic 71–173; BP diastolic 53–111
[2023-10-08 03:23] LABS: BASOPHILS ABSOLUTE AUTO 0.03 K/mm3 (0.00-0.23); BASOPHILS PERCENT AUTO 0 % (0-2); EOSINOPHILS ABSOLUTE AUTO 0.15 K/mm3 (0.00-0.68); EOSINOPHILS PERCENT AUTO 2 % (0-6); Hematocrit 38.1 % (33.0-51.0); Hemoglobin 13.6 g/dL (11.5-16.0); IMMATURE GRAN ABSOLUTE AUTO 0.03 K/mm3 (0.00-0.10); IMMATURE GRAN PERCENT AUTO 0 % (0-1); LYMPHOCYTES ABSOLUTE AUTO 1.79 K/mm3 (0.84-5.20); LYMPHOCYTES PERCENT AUTO 24 % (21-46); MONOCYTES ABSOLUTE AUTO 0.75 K/mm3 (0.16-1.47); MONOCYTES PERCENT AUTO 10 % (4-13); Mean Corpuscular HGB 33.2 pg (26.0-34.0); Mean Corpuscular HGB Conc 35.7 g/dL (31.5-36.5); Mean Corpuscular Volume 93 fL (80-100); Mean Platelet Volume 10.5 fL (9.1-12.4); NEUTROPHILS ABSOLUTE AUTO 4.71 K/mm3 (1.96-9.15); NEUTROPHILS PERCENT AUTO 63 % (41-73); Platelet Count 181 K/mm3 (150-400); RDW Coefficient Variation 13.6 % (11.7-14.2); RDW Standard Deviation 46.6 fL (35.1-46.3); White Blood Cell Count 7.46 K/mm3 (4.00-11.30)
[2023-10-08 03:59] LABS: Magnesium, Blood 2.4 mg/dL (1.6-2.4)
[2023-10-08 04:00] LABS: Albumin, Blood 3.1 g/dL (3.4-5.0); Anion Gap 11 mmol/L (3-11); Blood Urea Nitrogen 14 mg/dL (8-24); Bun/Creatinine Ratio 28.7 (12.0-20.0); CO2, Blood 24 mmol/L (21-32); Calcium, Blood 8.5 mg/dL (8.5-10.1); Chloride, Blood 102 mmol/L (98-108); Creatinine, Blood 0.49 mg/dL (0.40-1.00); Glomerular Filtration Rate 94 (60-); Glucose, Blood 114 mg/dL (70-99); Phosphorus, Blood 4.3 mg/dL (2.5-4.9); Potassium, Blood 4.5 mmol/L (3.5-5.5); Sodium, Blood 132 mmol/L (136-145)
[2023-10-08] MEDS ORDERED: Clarify Drug Order XX ONE (04:10)
--- NOTE | 2023-10-08 06:18 | NUR ---
End of shift note. Pt is pleasant and cooperative with care. Pt has rested well overnight. Pt has been ambulating into the bathroom with no complaints of dizziness. Pt continues to be afib 70-100s. Pt has been NPO since midnight, pending ELA cardioversion. Heparin gtt continues to infuse per MAR. Pt is able to make needs known, call light is within reach.
--- NOTE | 2023-10-08 09:12 | NUR ---
am note this rn assumed care at 0700. vital signs stable. spo2 >92% on room air. tele afib 80-120s. heart rate increases with activity, otherwise at rest is 80-110s. patient is alert and oriented x4. neuro is intact. patient is able to make needs known and uses call light appropriately. denies chest pain/pressure, pain or shortness of breath. see shift assessment for further detials. plan for galo/cardioversion today and possibly discharge pending how the procedure goes. md burden in this morning and discussed plan of care. plan remains up to date.
--- NOTE | 2023-10-08 10:51 | NUR ---
Pt. is awake in bed when she welcomes my visit. Pt. is pleasant but unsettled about delays in her procedure. Pt. verbalized that it is her understanding that yesterday the delay was because of a lack of an Anesthesiologist, and today there has been an unexpected emergency in the OR. Listen iwth empathy and a calming presence and seek to normalize the Pt. experience. Pt. is a woman of wilber and we communicate matters of wilber and belief. Pt. displayed evidence of undestanding. Prayed with Pt. Pt. verbalized grattiude for the spiritual care visit.
--- NOTE | 2023-10-08 12:00 | NUR ---
UPDATE md menard in room and went over ELA/cardioversion. patient left for ELA/cardioversion approx 1205.
[2023-10-08] MEDS ORDERED: Apixaban 5 MG Tab PO SCH (12:10)
[2023-10-08] MEDS ORDERED: NS 1,000 ML IV ONE (12:18)
[2023-10-08] MEDS ORDERED: Benzocaine Oral Spray 0.5ML UD ONE (12:19)
--- NOTE | 2023-10-08 13:19 | NUR ---
update patient returned to room for galo/cardioversion. sinsu rhythm 87.
--- NOTE | 2023-10-08 13:30 | NUR ---
PATIENT RETURNED BACK TO ROOM VIA WHEELCHAIR POST ELA AND CARDIOVERSION. EKG PERFORMED. PATIENT ON TELE. PATIENT CONVERSING APPROPRIATELY. VSS ON RA
[2023-10-08] MEDS ORDERED: ACET325 PO (14:02)
[2023-10-08] MEDS ORDERED: ELIQUIS5 M2 PO (14:02)
[2023-10-08] MEDS ORDERED: DILT30 PO (14:02)
--- NOTE | 2023-10-08 17:16 | NUR ---
discharge note this rn went over discharge education with patient and patient daugther. this rn went over new medication with patient and medications that have been discountined. this rn went over the importances of follow up appointments with primary care provider. patient and daughter verbalized understanding. patient left with all belongings and in no distress.
== END 2023-10-08 17:26 | disposition home or self-care (01) | DRG 309 ==
LOC: ER 11:00 → PCU 11:01
PROVIDERS: Family Medicine; Physician Assistant; ADMIT Internal Medicine
PROC: 5A2204Z Restoration of Cardiac Rhythm, Single (ICD-10-PCS; principal; 2023-10-08)
DX: I48.0 Paroxysmal atrial fibrillation (principal); E87.1 Hypo-osmolality and hyponatremia; E27.9 Disorder of adrenal gland, unspecified; F41.9 Anxiety disorder, unspecified; I25.10 Atherosclerotic heart disease of native coronary artery without angina pectoris; K21.9 Gastro-esophageal reflux disease without esophagitis; I10 Essential (primary) hypertension; E87.6 Hypokalemia; E03.9 Hypothyroidism, unspecified; F32.A Depression, unspecified; M81.0 Age-related osteoporosis without current pathological fracture; I95.9 Hypotension, unspecified; Z88.2 Allergy status to sulfonamides; Z91.041 Radiographic dye allergy status; Z79.899 Other long term (current) drug therapy; Z79.890 Hormone replacement therapy; Z85.828 Personal history of other malignant neoplasm of skin; Z98.890 Other specified postprocedural states; Z90.710 Acquired absence of both cervix and uterus; Z98.49 Cataract extraction status, unspecified eye; Z79.82 Long term (current) use of aspirin; W18.30XA Fall on same level, unspecified, initial encounter
CPT/HCPCS: 36415; 71046; 80053; 80069; 83735; 84100; 84443; 84484; 85014; 85018; 85025; 85049; 85520; 85610; 85730; 92960; 93005; 93010; 93306; 93312; 93325; 96374; 96375; 99284-25; A9270; C9113; G0378; J0360; J1644; J2371; J2704; J7030

== ENCOUNTER → 2024-01-27 | Outpatient (CLI) | payer OTHER ==
[~2024-01-27] MED LIST changes: +ACET325 PO; +DILT30 PO; +ELIQUIS5 M2 PO; +HYDCHL25 PO
[2024-01-28 11:19] LABS: Stool Occult Bld Immuno 1 Negative (NEGATIVE)
== END ==
LOC: LAB SHORT 05:00 → LAB 05:00
PROVIDERS: Internal Medicine Endocrinology, Diabetes & Metabolism
DX: K92.1 Melena (principal)
CPT/HCPCS: 82274

== ENCOUNTER 2024-08-12 11:15 | Day surgery (SDC) | payer OTHER ==
[~2024-08-12] VITALS: Ht 165.1 cm; Wt 48.9 kg
[~2024-08-12 11:15] MED LIST changes: +Lidocaine 1%-Epineph 1:100000 20 ML MDV ONE; +NS 500 ML IV ONE
[2024-08-12] MEDS ORDERED: NS 500 ML IV ONE (11:45)
[2024-08-12] MEDS ORDERED: FentaNYL Citrate 50 MCG/ML 2 ML Injection ONE (11:57)
[2024-08-12] MEDS ORDERED: Ondansetron HCl 2 MG / ML 2ML Vial ONE (11:57)
[2024-08-12] MEDS ORDERED: propofoL 20 ML IV ONE (11:57)
[2024-08-12] MEDS ORDERED: Dexamethasone Sod Phos 10 MG/ML 1ML VIAL ONE (11:57)
[2024-08-12] MEDS ORDERED: Metoclopramide HCl 5MG / ML 2ML Vial ONE (12:16)
--- NOTE | 2024-08-12 12:44 | NUR ---
08/12/24 1244 Lina Alva 10ML LOCAL INJECTED BY DR YANES AT 1235. PT TOLERATED WELL.
[2024-08-12 13:12] VITALS: BP 131/72
--- NOTE | 2024-08-12 13:15 | NUR ---
08/12/24 1315 MANUEL ROSS PT DOING VERY WELL, VERY TALKATIVE, DENIES PAIN.
== END 2024-08-12 13:45 | disposition home or self-care (01) ==
LOC: ORSCSDS 11:15
PROVIDERS: Orthopaedic Surgery
PROC: 01N54ZZ Release Median Nerve, Percutaneous Endoscopic Approach (ICD-10-PCS; principal; 2024-08-12 13:00)
DX: G56.01 Carpal tunnel syndrome, right upper limb (principal); I25.2 Old myocardial infarction; E78.5 Hyperlipidemia, unspecified; I10 Essential (primary) hypertension; E07.9 Disorder of thyroid, unspecified; Z79.01 Long term (current) use of anticoagulants; Z79.899 Other long term (current) drug therapy
CPT/HCPCS: J1100; J2405; J2704; J2765; J3010; J7040

== ENCOUNTER → 2024-12-14 | Outpatient (CLI) | payer OTHER ==
[~2024-12-14] MED LIST changes: -Lidocaine 1%-Epineph 1:100000 20 ML MDV ONE; -NS 500 ML IV ONE
[2024-12-14 16:12] LABS: Source, Urine Clean Catch
[2024-12-14 18:31] LABS: Bilirubin, Urine Neg (Neg); Glucose Qualitative, Urine Neg (Neg); Ketones, Urine Neg (Neg); Leukocyte Esterase, Urine 3+ (Neg); Protein, Urine 1+ (Neg); Specific Gravity, Urine 1.005 (1.003-1.022); Urobilinogen, Urine NORM (Normal)
[2024-12-14 18:38] LABS: Color, Urine Pale Yellow (P-Yellow); White Blood Cells, Urine TNTC /hpf (0-5)
== END ==
LOC: LAB 16:10 → LAB SHORT 16:10
PROVIDERS: Obstetrics & Gynecology
DX: R39.9 Unspecified symptoms and signs involving the genitourinary system (principal)
CPT/HCPCS: 81001; 87086